=== PATIENT | male | born 1950 | race Caucasian/White ===

== ENCOUNTER → 2021-06-15 06:26 | Outpatient (CLI) | payer MEDICARE, SELFPAY ==
--- NOTE | 2021-06-15 11:43 | NEURO ---
NCS and/or EMG Patient Report Ordering Doctor: Seth Shah DATE OF SERVICE: 06/15/21 Aleksander presents for electrodiagnostic testing of the lower limbs. He has complaints of numbness and tingling in both feet, worse on the left side. He reports is progressively worsened over the past 7 years. Electrodiagnostic findings: Peroneal motor nerve demonstrates normal distal latency, amplitude and conduction velocity bilaterally. Normal tibial motor response bilaterally. Prolonged tibial F wave bilaterally. H reflex is prolonged bilaterally. Absent left sural and superficial peroneal responses. Absent left medial plantar response. Borderline prolonged right sural latency. On needle EMG, all muscles tested in the lower limbs showed no evidence of denervation with normal motor unit action potentials Electrodiagnostic impression: This is an abnormal study in the lower limbs 1. 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 2. No electrodiagnostic evidence is noted for lumbosacral radiculopathy.
== END ==
LOC: PSN 06:29
PROVIDERS: PCP Internal Medicine; Referring Provider Orthopaedic Surgery; Visit Provider Orthopaedic Surgery
DX: M48.061 Spinal stenosis, lumbar region without neurogenic claudication (principal); R20.2 Paresthesia of skin; M47.26 Other spondylosis with radiculopathy, lumbar region
CPT/HCPCS: 95886; 95912

== ENCOUNTER → 2023-07-04 | Outpatient (CLI) | payer MEDICARE, MEDICAID, SELFPAY ==
--- NOTE | 2023-07-04 09:51 | ART_ITS ---
Reason For Study: PAD Procedure A bilateral lower extremity continuous wave Doppler with analog waveform analysis,segmental pressures,and ankle brachial indexes without exercise. Left Segmental Pressures Left brachial= 133mmHg. Left ankle= 191mmHg. Left posterior tibial artery = 158mmHg. Left digit = 194 mmHg. The left posterior tibial artery waveforms are triphasic. The left dorsalis pedis waveforms are triphasic. Right Segmental Pressures Right brachial= 134mmHg. Right posterior tibial artery = 195mmHg. Right dorsalis pedis artery = 166mmHg. Right digit = 175 mmHg. The right posterior tibial artery waveforms are triphasic. The right dorsalis pedis waveforms are triphasic. Indices The right ankle brachial index by the posterior tibial artery is 1.46. The right ankle brachial index by the dorsalis pedis is 1.24. The right digital-brachial index is 1.31. The left ankle brachial index by the posterior tibial artery is 1.43. The left ankle brachial index by the dorsalis pedis is 1.18. The left digital-brachial index is 1.45. VL/Lower Ext Art Exam w/o Exercis Interpretation Summary Right VALERIE 1.46, normal. TBI and Doppler/PVR waveforms of the right leg normal a t rest. Left VALERIE 1.43, normal. TBI and Doppler/PVR waveforms of the left leg normal at rest. Ordering Physician: Ely Leach Referring Physician: ELY LEACH DPM Performed By: Myke Roberts RVT
--- NOTE | 2023-07-04 09:51 | VDLE_ITS ---
Reason For Study: PVD RIGHT LEFT CFV is compressible, spontaneous, phasic, CFV is compressible, spontaneous, phasic, competent and demonstrates normal competent, and demonstrates normal augmentation. augmentation. FV is compressible, spontaneous, phasic, FV is compressible, spontaneous, phasic, competent and demonstrates normal competent and demonstrates normal augmentation. augmentation. POP V is compressible, spontaneous, phasic, POP V is compressible, spontaneous, phasic, competent and demonstrates normal competent and demonstrates normal augmentation. augmentation. T/P Trunk is compressible. T/P Trunk is compressible. PTV is compressible. PTV is compressible. RT PerV is compressible. LT PerV is compressible. SFJ is competent and measures 0.96 cm. SFJ is competent and measures 0.72 cm. GSV proximal thigh measures 0.56 x 0.59 cm. GSV proximal thigh measures 0.57 x 0.59 cm. GSV at knee measures 0.57 x 0.58 cm. GSV at knee measures 0.47 x 0.48 cm. GSV is competent throughout. GSV is competent throughout. SSV proximal calf is competent and measures SSV proximal calf is competent and measures 0.28 x 0.26 cm. 0.36 x 0.36 cm. Rouleaux flow noted in Rt SFJ. Procedure Exam performed in department. This is a venous duplex using B-mode, color flow and spectral Doppler. The exam was diagnostic. VL/Venous Duplex US - [place] Extrem Interpretation Summary Deep veins of the bilateral lower extremities are patent and compressible segme ntally. There is no evidence of bilateral lower extremity deep vein thrombosis. The bilateral great saphenous veins appear patent and compressible segmentally. Negative for reflux bilateral Ordering Physician: Javid Leach Referring Physician: Javid Leach Performed By: Myke Roberts, RVT
== END | disposition home or self-care (01) ==
PROVIDERS: PCP Internal Medicine; Referring Provider Podiatrist Foot & Ankle Surgery; Visit Provider Podiatrist Foot & Ankle Surgery
DX: I87.2 Venous insufficiency (chronic) (peripheral) (principal); I73.9 Peripheral vascular disease, unspecified; R60.0 Localized edema
CPT/HCPCS: 93923; 93970

== ENCOUNTER 2023-09-14 09:55 | Day surgery (SDC) | payer MEDICARE, MEDICAID, SELFPAY ==
[2023-09-04 16:04] LABS: Magnesium 2.2 mg/dL (1.6-2.6)
[2023-09-04 16:46] LABS: Hemoglobin A1c 5.8 % (3.8-5.6)
[2023-09-07 12:09] LABS: Vitamin D 1,25-Dihydroxy 34.1 pg/mL (24.8-81.5)
[2023-09-10 14:08] LABS: Cotinine Screen Blood <1.0 ng/mL (.); Nicotine Blood <1.0 ng/mL (.)
[2023-09-14] VITALS (12 sets, daily range): BP systolic 133–157; BP diastolic 71–93; PULSE 71–85; RESP 12–18; TEMP 36.8–37.6; O2SAT 87–100; BMI 39.6
[2023-09-14] MEDS: Magnesium 1 GM over 15 mins IV (10:30)
[2023-09-14] MEDS: Lactated Ringers 1,000 ML 15 ML IV (10:38)
[2023-09-14] MEDS: Gabapentin 600 MG Tablet PO (10:39)
[2023-09-14] MEDS: Acetaminophen 500 MG Tablet 1000 MG PO (10:39)
--- NOTE | 2023-09-14 11:00 | RAD_ITS ---
INDICATION: 1ST MPJ FUSION ARTHRODESIS IN OR EXAMINATION/TECHNIQUE: X-RAY - LEFT XR Foot 2 Views 3 VIEWS COMPARISON: No relevant prior comparison study available FINDINGS: 2 views of the distal foot were obtained on a C-arm for documentation of fusion of the first metatarsophalangeal joint. Examination was not performed for diagnostic purposes. The fluoroscopy time was 80.8 seconds. The radiation dose is 1.28 mGy. RAD/Foot 2 Views IMPRESSION: Intraprocedural exam as described above. Electronically Signed: Mauro Chappell MD at 18:07 EST ,
[2023-09-14 11:13] LABS: Bedside Glucose 120 mg/dL (74-106)
[2023-09-14] MEDS: Cefazolin 3 GM in 0.9% Normal Saline (100mL Bag) 100 ML IV (14:02)
--- NOTE | 2023-09-14 16:49 | PCM.OPRPT ---
Problems Associated Problem List Diagnoses (1) Hallux valgus (acquired), left foot: (2) Other hammer toe(s) (acquired), left foot: (3) Other acquired deformities of unspecified foot: (4) Short Achilles tendon (acquired), left ankle: (5) Contracture of joint of left foot: (6) Spontaneous rupture of other tendons, left ankle and foot: Report of Operation Date of Procedure: 09/15/23 Pre-Operative Diagnosis: 1. Hallux valgus, left foot 2. Hammertoe, second digit, left foot 3. Other acquired deformities of unspecified foot 4. Short Achilles tendon, left ankle 5. Contracture of joint, left foot 6. Spontaneous rupture of the EHL tendon, left foot Post-Operative Diagnosis: 1. Hallux valgus, left foot 2. Hammertoe, second digit, left foot 3. Other acquired deformities of unspecified foot 4. Short Achilles tendon, left ankle 5. Contracture of joint, left foot 6. Spontaneous rupture of the EHL tendon, left foot Surgery/Procedure Performed:: 1. First metatarsophalangeal joint arthrodesis, left foot 2. [place] of calcaneal bone graft, left foot 3. PIPJ arthroplasty, second digit, left foot 4. Endoscopic gastroc recession, left ankle 5. Second metatarsal phalangeal joint percutaneous capsulotomy, left foot 6. Second IPJ percutaneous interphalangeal joint capsulotomy, second digit, left foot 7. Primary repair of the EHL tendon after spontaneous rupture, left foot Description of Surgical Findings:: 1. 90% loss of articular cartilage to the first metatarsal head as well as base of the proximal phalanx. 2. Good apposition of arthrodesis site to the first metatarsophalangeal joint using [employer] hardware 3. Release of contracture to the second digit percutaneously. 4. Evidence of EHL disuse with degeneration which led to spontaneous rupture of the EHL tendon when positioning the hallux into position for arthrodesis. EHL was ultimately repaired. Surgeon: Javid Leach office services coordinator: Jerrod Teran Type of Anesthesia: General and Local Anesthesiologist: Julio Thomas Special Medications: Per anesthesia Specimen's removed: None Drains: Per anesthesia Estimated Blood Loss (mL): 40 mL Fluids Replaced: Per anesthesia Description of Procedure: Indications For Operation: Mr. Avelar is a 73-year-old male who was admitted to [facility] for elective left surgery consisting of endoscopic gastroc recession, Silver Gate of calcaneal bone graft, first metatarsophalangeal joint arthrodesis, and claw toe correction of the second digit. The patient was seen in private office for surgical consultation. All risk and benefits were discussed with patient in great detail. Due to left foot deformity it has been deemed necessary at this time to take the patient to the operating room to perform the above procedures to help correct the patient's major deformity to the left foot and relieve his constant pain.. The nature of the problem, anticipated procedures, postop recovery/convalences and risk/complications include but not limited to infection, wound healing complications, hypertrophic scarring, numbness, tingling, chronic pain, CRPS, over and under correction, recurrence of deformity, DVT and or PE and the need for further surgery have been discussed in great detail with the patient. All questions have been answered to the patient's satisfaction. There are no guarantees given as to the outcome of the procedure. Description of Procedure: Under mild sedation, the patient was brought into the operating room and placed on the operating table in supine position. Once the patient was under general anesthesia with laryngeal mask airway, the left lower extremity was blocked using approximately 20 cc 0.5% Marcaine plain. Next, a well-padded thigh tourniquet was applied to the left lower extremity. Next, the left lower extremity was prepped and draped in normal aseptic manner. Next, a timeout was then undertaken verifying the correct patient, extremity, visibility of preoperative markings, availability of the equipment. Next, attention was directed to the left lower extremity. Using a 4 inch Esmarch, left ended accident lower extremity was exsanguinated and elevated to 60 degrees for 1 minute. Procedure #1, endoscopic gastroc recession, left ankle Next, attention was directed to the left lower extermity. A silfverskiold test was performed on the operating table. There was evidence of a positive Silfverskiold test for gastrocnemius equinus. Next, attention was directed to the aponeurosis of the gastrocnemius muscle. A small stab incision was placed approximately 2 to 3 cm from the gastroc insertion. Using the [place] sheet pile driver operator the aponeurosis was bow strong and then advanced to the lateral aspect of the left lower extremity. Once tenting of the skin was identified a small stab incision was made with a 15 blade laterally. Using the Gwen obturator and cannula, it was advanced through both incisions. Using the Gwen 30 degree 4.0 mm scope there showed evidence of the aponeurosis of the gastrocnemius muscle. Using the rasp the muscle fibers/Sub Q were removed from the aponeurosis tissue. Using the Gwen 30 degrees 4.0 mm scope and look blade, careful incision across the aponeurosis was made half laterally then half medially until released. After release of the aponeurosis the ankle was put through range of motion with the knee extended as well as flexed and showed to be increased past 90 in both positions. Both incisions were flushed with copious esperanza of warm saline. The skin was reapproximated and closed with 3-0 nylon in simple interrupted suture technique. An injection of 2.5 cc of Viaflow was administered to aid in healing and decreased adhesions. Procedure #2, Silver Gate of calcaneal bone graft, left foot Next, attention was directed to the lateral aspect of the left calcaneus. Using a #15 blade, a full-thickness incision, approximately 1 cm, was made down to bone without incident. Continued blunt dissection was carried out with curved hemostats. Using the Arthrex 10 mm osteoagar, calcaneal bone harvest less than than 5 cc was made, then removed from the calcaneus and passed the back table to be used later in the case, for the first interphalangeal joint arthrodesis procedure. The incision was flushed with copious esperanza of normal saline. The skin was reapproximated and closed using 3-0 nylon in simple interrupted suture technique. Procedure #3, first metatarsophalangeal joint arthrodesis, left foot Next, using a #15 blade, a full-thickness incision down to bone was made medial to the extensor hallucis longus tendon, left foot. The extensor hallucis longus tendon was protected, let it be noted that there showed evidence of degeneration as well as disease in the extensor hallucis longus tendon, and continued dissection was carried down and around the first metatarsal phalangeal joint. Care was taken to remove the periosteum at the level of the surgical neck of the first metatarsal and head as well as the base of the proximal phalanx. The joint was inspected and showed evidence of moderate to severe osteoarthritis as well as 90% loss of the articular surface of the first metatarsal head and base of the proximal phalanx. Using 18 mm cup and cone reamers the head of the first metatarsal and base of the proximal phalanx were prepped. The additional overgrowth of bone was removed with rongeur and discarded. The incision area was flushed with copious also normal saline. A 2-0 mm drill was used to fenestrate the head of the first metatarsal and base of the proximal phalanx. After fenestration was complete, the autograft that was removed from the prior procedure was placed in the first metatarsal phalangeal joint and the first metatarsal phalangeal joint was placed in a anatomical position with the hallux parallel to the second digit with the toenail facing up, with 10 degrees of dorsiflexion with 10 degrees of valgus rotation, and fixated in this position with a 1.4 mm fixation pin. While positioning the hallux against the first metatarsal of the left foot there was spontaneous rupture of the extensor hallucis longus tendon, which was repaired during separate procedure in the case. The Plasmon Ortholoc plate was placed per the costume cutter's recommendation with the rep in the room. 3 distal 3.5 millimeter locking screws were placed. Next, attention was directed to the oblong hole in the proximal Ortholoc plate. Using a drill sleeve and guide, a perpendicular drill hole made perpendicular to the long axis of the first metatarsal eccentrically in the oblong hole. A nonlocking screw was placed and prior to engagement of the plate the additional BB tack was removed. Continue insertion of the nonlocking screw was made, contacting the plate and noticeable compression was made across the arthrodesis site of the first metatarsal phalangeal joint. Next, 2 additional 3.5 mm locking screws were placed in the proximal plate. All screw lengths were checked clinically as well as with large C-arm fluoroscopy. Attempt was made to put the first metatarsophalangeal joint through range of motion which was unsuccessful due to excellent apposition of the joint during surgery. The incision was flushed with copious esperanza of normal saline. Procedure #4, primary repair of spontaneous rupture of the EHL tendon, left foot Next, attention was directed to the EHL tendon that was spontaneously ruptured when positioning the hallux of the left foot. Both ends were identified and reapproximated. Once reapproximation was initiated that showed evidence of tension across the EHL tendon secondary to elongation of the left hallux. But let it be noted that there was severe contracture secondary to hallux valgus deformity prior to the case. The EHL tendon was repaired via z-lengthening primarily using 3-0 Vicryl with pants over vest technique along with running 3-0 Vicryl along the tendon rupture site. After repair there showed good integrity to the tendon. The IPJ of the left hallux was put through range of motion and the EHL tendon is was easily gliding along its course. Procedures #5 PIPJ second digit arthroplasty, #6-second metatarsal phalangeal joint percutaneous capsulotomy, #7-second IPJ percutaneous interphalangeal joint capsulotomy, left foot Next, attention was directed to the second digit of the left foot. A small incision was made over the PIPJ of the second digit, further blunt dissection was carried down to the level of the long extensor tendon which showed evidence of degeneration and severe tenosynovitis. The head of the proximal phalanx was identified and removed with bone cutter. The head of the proximal phalanx was removed and passed the back table to be discarded. Next, through a separate incision a percutaneous stab incision was made at the level of the second metatarsal phalangeal joint. There showed evidence of release of the capsule and release of contracture of the second digit. Next, attention was directed to the second PIPJ of the second digit. Using a Blair blade, a separate incision was made medially to the IPJ was percutaneously released at the level of the interphalangeal joint. There showed release of contracture to the IPJ since the capsule was released from the medial and lateral aspects of. The minimally invasive bur by [place] was inserted to remove the exostosis off the intermediate bone of the second digit. All incisions were flushed with copious esperanza of normal saline. The patient tolerated the procedure and anesthesia well and apparent satisfactory condition and was transported to the PACU for further monitoring prior to discharge home. Vital signs stable and vascular status intact to all digits bilateral. Post Operative Plan: Weightbearing: Patient to be partial weightbearing to left lower extremity with Cam boot to heel only. Full weightbearing to the right lower extremity. Antibiotics: 3 g cefazolin through the IV DVT Prophylaxis: Patient is on anticoagulation Mendez: None Dressing: Betadine soaked Adaptic, dry sterile dressing single-layer Anderson compression bandage, cam boot X-Rays: Post-operative films taken on the operating room. Pain Medication: Percocet 5/325, Flexeril 10 mg 3 times daily Follow-up: Patient will follow-up with Dr. Leach in private office 1 week postop. Patient has appointment. Grafts/Implants Used: 1. Autograft, left foot. 2. 2.5 cc Viaflow Complications None Admit VTE Documentation VTE Present on Admission: No VTE Mechan Device Prophylaxis: SCD's VTE Pharm Prophylaxis ordered?: Yes
[2023-09-14 18:46] LABS: Bedside Glucose 136 mg/dL (74-106)
[2023-09-14] MEDS: Oxycodone/Apap 5/325 Tablet PO (19:23)
== END 2023-09-14 19:46 | disposition home or self-care (01) ==
LOC: SDC 09:57 → AC 09:59
PROVIDERS: Anesthesiology; PCP Internal Medicine; Referring Provider Podiatrist Foot & Ankle Surgery; Visit Provider Podiatrist Foot & Ankle Surgery
PROC: (CPT 29999; principal; 2023-09-14 11:45)
DX: M20.12 Hallux valgus (acquired), left foot (principal); S96.912A Strain of unspecified muscle and tendon at ankle and foot level, left foot, initial encounter; M21.6X9 Other acquired deformities of unspecified foot; M65.849 Other synovitis and tenosynovitis, unspecified hand; M20.40 Other hammer toe(s) (acquired), unspecified foot; M19.079 Primary osteoarthritis, unspecified ankle and foot; M24.575 Contracture, left foot; G47.30 Sleep apnea, unspecified; Z99.89 Dependence on other enabling machines and devices; M10.9 Gout, unspecified; Z87.891 Personal history of nicotine dependence; Z79.899 Other long term (current) drug therapy; Z79.82 Long term (current) use of aspirin
CPT/HCPCS: 28285; 28750; 29999; 01480; 20902; 28270; 28208; 36415; 73620; 76000; 80323; 82652; 82962; 83036; 83735; 87081; C1713; J7120; G0480; J2405; J3475

== ENCOUNTER → 2024-07-12 | Outpatient (CLI) | payer MEDICARE, MEDICAID, SELFPAY ==
--- NOTE | 2024-07-12 07:52 | CT_ITS ---
EXAM: CT LEFT LOWER EXTREMITY WITHOUT INTRAVENOUS CONTRAST, FOOT CLINICAL INDICATION: LT FOOT OA TECHNIQUE: Helically acquired images were obtained of the left foot without intravenous contrast. This CT exam was performed using one or more of the following dose reduction techniques: automated exposure control, adjustment of the mA and/or kV according to patient size, and/or use of iterative reconstruction technique. COMPARISON: Foot radiographs 09/14/2023 FINDINGS: BONES/JOINTS: There is prominent joint space narrowing, mild bony hypertrophy and subchondral cyst formation along the first MTP joint. Radiolucent changes are seen along the distal fixating screw at the level of the metatarsal head as well as the distal screw at the proximal phalangeal level. No evidence of osteomyelitis. Septic arthritis of the first MTP joint not excluded. Dorsal surgical plate remains in place across the first MTP joint. Dorsal and plantar calcaneal spurring is present. SOFT TISSUES: 12 mm radiolucency within the lateral aspect of the calcaneus noted suggestive of lipoma. There is cortical defect laterally adjacent to the lesion as well as associated soft tissue density within the subcutaneous tissues. Bladder findings may be due to prior surgery. No soft tissue edema or fluid collection. CT/Extremity Lower without Contra IMPRESSION: 1. Postoperative changes of the first MTP joint as described. Arthritic changes of the first MTP joint with underlying septic arthritis not excluded. 2. Additional findings detailed above. Electronically Signed: Lennox Manriquez MD at 16:25 EST ,
== END | disposition home or self-care (01) ==
LOC: CT 07:50
PROVIDERS: PCP Internal Medicine; Referring Provider Podiatrist Foot & Ankle Surgery; Visit Provider Podiatrist Foot & Ankle Surgery
DX: M19.072 Primary osteoarthritis, left ankle and foot (principal); M96.0 Pseudarthrosis after fusion or arthrodesis; M79.672 Pain in left foot
CPT/HCPCS: 73700